=== PATIENT | female | born 1960 | race Caucasian/White ===

== ENCOUNTER 2023-03-21 05:49 | Day surgery (SDC) | payer OTHER ==
[~2023-03-21] VITALS: Ht 160 cm; Wt 97.5 kg
== END 2023-03-21 14:00 | disposition home or self-care (01) ==
LOC: CIR.AMB 05:49
PROVIDERS: ATTEND Obstetrics & Gynecology
DX: N84.0 Polyp of corpus uteri (principal); D25.0 Submucous leiomyoma of uterus; N95.0 Postmenopausal bleeding; D26.1 Other benign neoplasm of corpus uteri; Z88.6 Allergy status to analgesic agent; Z20.822 Contact with and (suspected) exposure to COVID-19

== ENCOUNTER 2023-12-21 08:00 | Outpatient (CLI) | payer OTHER ==
[~2023-12-21 08:00] MED LIST: DOLOGEN CAPLET1 EACH PO; NORFLEX100MG PO; PREDNISONE10 MG PO
== END 2023-12-21 08:03 | disposition home or self-care (01) ==
LOC: NUCLEAR 08:00
PROVIDERS: ATTEND Internal Medicine Cardiovascular Disease
DX: I87.2 Venous insufficiency (chronic) (peripheral) (principal)